=== PATIENT | male | born 1950 ===

== ENCOUNTER 2024-07-27 09:42 | Observation (INO) ==
--- NOTE | 2024-07-03 11:57 | PAT Medication Instructions ---
Medication Instructions Date of Service July 03, 2024 Home Medications amlodipine 10 mg tablet 10 mg PO PM lisinopril 30 mg tablet 30 mg PO QAM metformin 1,000 mg tablet 1,000 mg PO BID aflibercept 2 mg/0.05 mL intravitreal solution for injection (Eylea) 1 mg intravitreal UD multivitamin 1 tab PO DAILY naproxen sodium 220 mg tablet (Aleve) 220 mg PO BID PRN Pain ASK your surgeon for instructions naproxen sodium 220 mg tablet (Aleve) 220 mg PO BID PRN Pain ASK your prescriber and surgeon aflibercept 2 mg/0.05 mL intravitreal solution for injection (Eylea) 1 mg intravitreal UD DO NOT take the morning of surgery lisinopril 30 mg tablet 30 mg PO QAM metformin 1,000 mg tablet 1,000 mg PO BID multivitamin 1 tab PO DAILY Take evening before surgery amlodipine 10 mg tablet 10 mg PO PM metformin 1,000 mg tablet 1,000 mg PO BID NOTHING TO EAT OR DRINK AFTER MIDNIGHT Other Notes If you have any questions please call us at [phone] or [phone] or [phone] or [phone]
--- NOTE | 2024-07-09 10:21 | Anesthesiology Consultation ---
Date of Service July 09, 2024 Assessment & Plan (1) Encounter for pre-operative examination: - Optimization form to be sent to Dr. Donaldson regarding anemia. Surgeon's office made aware. - check BSG am DOS. - Outpatient joint assessment: Patient is currently scheduled for inpatient pathway. If re-evaluated and patient/surgeon requests outpatient pathway, patient is not ideal candidate for outpatient joint program from anesthesia standpoint. Chart Review Chart Review: Pending: Refer to Additional Notes / Consult section and Patient seen in Pre Admission Testing Teaching & Discussion Pre-Anesthesia Teaching/Discussion Notes: Instructed NPO after midnight before surgery, except medications with 15 cc of water. Medication instructions provided according to the PAT guidelines. History Surgery Operation Date: 07/27/24 08:50 Proposed Procedures p Left Total Knee Arthroplasty - Orion Gomes MD Height/Weight Height: 5 ft 10 in Weight: 97.3 kg Allergies Allergy/AdvReac Type Severity Reaction Status Date / Time No Known Allergies Allergy Verified 06/26/24 08:03 Medications Home Medications Medication Instructions Recorded Confirmed Last Taken amlodipine 10 mg tablet 10 mg PO PM 06/11/24 06/26/24 Unknown lisinopril 30 mg tablet 30 mg PO QAM 06/11/24 06/26/24 Unknown metformin 1,000 mg tablet 1,000 mg PO BID 06/11/24 06/26/24 Unknown aflibercept 2 mg/0.05 mL 1 mg intravitreal UD 06/26/24 06/26/24 Unknown intravitreal solution for injection (Eylea) multivitamin 1 tab PO DAILY 06/26/24 06/26/24 Unknown naproxen sodium 220 mg tablet 220 mg PO BID PRN Pain 06/26/24 06/26/24 Unknown (Aleve) Past Medical History Medical History Diabetes mellitus, type 2 NIDDM Hypertension controlled, stable per pt Neuropathy hands and feet Osteoarthritis Patient denies h/o stroke, seizures, heart attack, heart failure, blood clots/DVTs or blood transfusions. Exercise / Class Metabolic Activity II 4-5 Yardwork/Stairs/Walk up hill (denies chest discomfort or shortness of breath with one flight of stairs) Past Family History Family History Mother Slow to wake up after anesthesia Past Surgical History Surgical History History of cataract surgery bilat History of colonoscopy History of mandibular surgery History of right inguinal hernia repair History of tooth extraction Hx of external ear surgery right Hx of hemorrhoidectomy Past Anesthesia History No Hx of Anesthesia Complications and Other (mother slow to wake) History of PONV No Hx of PONV and No Hx of Motion Sickness Social History Smoking Status: Never smoker Do You Dip or Chew Tobacco: No Hx Alcohol Use: No Hx Substance Use: No substance use type: does not use Review of Systems Patient denies chest pain, shortness of breath, dyspnea on exertion, snoring, witnessed apneas, reflux, fever, chills, cough, wheezing, or palpitations. Physical Exam Vital Signs Vitals BP 135/72 P 64 TEMP 98.3 SP02 96% on RA RESP 18 Physical Patient resting comfortably in chair in no acute distress, alert and oriented, responding appropriately throughout visit Full cervical extension range of motion without pain TMD 3.5 finger breadths Mallampati Score 2 Dentition: intact, denies chipped or loose teeth, caps/crowns, implants or bridges Lungs: normal respiratory effort. Good air movement, clear throughout to auscultation, no adventitious breath sounds Cardiac: regular rate and rhythm, no murmurs noted Carotid arteries: negative bruit bilat Lab Results Anesthesia Preop Results Results Anesthesia Widget: WBC 5.93 K/ul (4.8-10.8) 07/09/24 Hgb 11.8 g/dl (14.0-18.0) L 07/09/24 Hct 37.5 % (42.0-52.0) L 07/09/24 Plt 243 K/uL (130-400) 07/09/24 PT 10.5 Seconds (9.0-12.0) 07/09/24 PTT 27 Seconds (21-31) 07/09/24 INR 1.0 (0.9-1.1) 07/09/24 Blood Type A Negative 07/09/24 Antibody Screen NEGATIVE 07/09/24 Testing Laboratory Results 06/01/24 SODIUM: 140 POTASSIUM: 4.7 CHLORIDE: 106 CO2: 27 BUN: 29 CREATININE: 1.2 GLUCOSE: 98 A1c: 6.5% Electrocardiogram Date: 07/09/24 Sinus bradycardia, rate 58 bpm Chest X-Ray Date: 07/02/24 No acute process of the chest.
--- NOTE | 2024-07-23 20:44 | History & Physical Report ---
Date of Service July 23, 2024 Assessment & Plan (1) Left knee DJD: 74-year-old gentleman with advanced left knee DJD. He has had about 10-year history of progressive increased pain discomfort. He is failed conservative measures. He like to have his left knee replaced. Plan: We will take him to the operating do left total knee replacement but the risk and benefit this procedure explained and he understands. Informed consent was obtained. He will need to hold his lisinopril and the metformin the morning of surgery. He has been seen by his medical doctor and cleared for surgery. History of Present Illness Chief Complaint: . Left knee pain discomfort and swelling. Primary Care Provider: NO PCP . The patient is a 74-year-old gentleman who presents specifically for surgical treatment of the left knee. Got a long history of knee problems dating back to a fall about 10 years ago. He has been treated over the years for knee arthritis which would become less successful. He describes global pain in his knees. The knee is gotten stiffer as time gone on. It does swell as well. He limps more as the day goes on. He now like to consider surgery. Allergies Allergy/AdvReac Type Severity Reaction Status Date / Time No Known Allergies Allergy Verified 06/26/24 08:03 Home Medications Medication Instructions Recorded Confirmed Type amlodipine 10 mg tablet 10 mg PO PM 06/11/24 06/26/24 History lisinopril 30 mg tablet 30 mg PO QAM 06/11/24 06/26/24 History metformin 1,000 mg tablet 1,000 mg PO BID 06/11/24 06/26/24 History aflibercept 2 mg/0.05 mL 1 mg intravitreal UD 06/26/24 06/26/24 History intravitreal solution for injection (Eylea) multivitamin 1 tab PO DAILY 06/26/24 06/26/24 History naproxen sodium 220 mg tablet 220 mg PO BID PRN Pain 06/26/24 06/26/24 History (Aleve) Past Med/Surg History Problem List Encounter for pre-operative examination Left knee DJD Medical History Osteoarthritis Diabetes mellitus, type 2 NIDDM Neuropathy hands and feet Hypertension controlled, stable per pt Surgical History History of mandibular surgery History of colonoscopy Hx of hemorrhoidectomy History of tooth extraction History of cataract surgery bilat Hx of external ear surgery right History of right inguinal hernia repair Family History Mother Slow to wake up after anesthesia Social History Smoking Status: Never smoker Second Hand Exposure: No; Do You Dip or Chew Tobacco: No; Hx Alcohol Use: No Hx Substance Use: No Preferred Language: Indian Communication Ability: Effective Human Resource Adviser Required: No Beliefs That Will Affect Care: None Current Living Situation: Alone Feels Safe at Home: Yes Assistive Devices: Glasses Review of Systems All systems reviewed & are unremarkable except as noted in HPI & below. Physical Exam . Physical examination reveals a pleasant middle-age male. Looks in pretty good health. Examination of the left knee reveal patient ambulates independently. He is got a slight bit of a limp he is got varus alignment to his knee with a bit of a varus thrust with weightbearing. He is got a moderate to large knee joint effusion. Pretty stiff knee with about a 10 to 15 degree flexion contracture and only bends to about 90 degrees. No pain with hip motion. Constitutional WD/WN, vitals as above Neck trachea midline, no thyromegaly Respiratory normal respiratory effort, lungs clear to auscultation Cardiovascular RRR, no murmur, no edema Gastrointestinal (Abdomen) normal bowel sounds, soft, nontender, no hepatosplenomegaly Results & Data Results & Data Laboratory Results . Diagnostic Findings . X-rays of the left knee reviewed. Shows advanced left knee DJD. Is got complete loss of the medial joint space. He is got nexq-xz-domn disease. Got osteophytes primarily medially. I did get an x-ray of his hip which reveals minimal arthritic change. PG Care Time/CCT Total # of Minutes Spent Total Time Spent with Patient: Total time spent is greater than 50% in coordination of care (as documented) at patient's floor/unit and/or counseling patient: Coding Level of Care Code None Diagnoses Left knee DJD M17.12
[~2024-07-27 09:42] MED LIST: BUPIVACAINE 0.5 % 5 MG/1 ML PF 10ML VIAL ONE; ROPIVACAINE 0.5% 5 MG/ML 30 ML VIAL ONE
[2024-07-27] MEDS: ACETAMINOPHEN 500 MG TAB PO SCH ×2 (10:17→21:06)
[2024-07-27] MEDS: LR 60ML/HR IV SCH (10:17)
[2024-07-27] MEDS: LR 15ML/HR IV SCH (10:17)
[2024-07-27] MEDS: METOCLOPRAMIDE HCL 10 MG TABLET PO SCH (10:18)
[2024-07-27] MEDS: CeleBREX 200 MG CAP PO SCH (10:18)
[2024-07-27] MEDS: FAMOTIDINE 20 MG TAB PO SCH (10:18)
--- NOTE | 2024-07-27 11:00 | History & Physical Bridge Note ---
Date of Service July 27, 2024 History & Physical Bridge Note I have examined the patient, reviewed the History & Physical and in the interval since the performance of the History & Physical I have noted the following changes of clinical significance: no changes noted
[2024-07-27] MEDS ORDERED: fentaNYL citrate PF 100 MCG/2 ML VIAL ONE ×2 (12:31→13:49)
[2024-07-27] MEDS ORDERED: PROPOFOL IV EMULSION 10 MG/ML 20 ML VIAL IV ONE (12:31)
[2024-07-27] MEDS ORDERED: MIDAZOLAM HCL 1 MG/ML 2ML VIAL ONE (12:31)
[2024-07-27] MEDS ORDERED: ATROPINE SULFATE 0.1 MG/ML 10ML SYR IV PRN (12:33)
[2024-07-27] MEDS ORDERED: fentaNYL citrate PF 100 MCG/2 ML VIAL IV PRN (12:33)
[2024-07-27] MEDS ORDERED: ONDANSETRON INJ 2 MG/ML 2 ML VIAL IV PRN ×2 (12:33→16:35)
[2024-07-27] MEDS ORDERED: ePHEDrine sulfate 50 MG/ML AMP IV PRN (12:33)
[2024-07-27] MEDS: TRANEXAMIC ACID 1,000 MG **IV Pre-op IV SCH (12:50)
[2024-07-27] MEDS ORDERED: ePHEDrine sulfate 50 MG/5 ML SYR ONE (13:42)
[2024-07-27] MEDS: ceFAZolin 2000MG 2,000 MG/15 ML SYR IV SCH ×2 (13:42→21:07)
[2024-07-27] MEDS: ROPIVACAINE 0.5% HCL/PF 246 MG, Ketorolac (*for OR use only*) 30 MG, EPINEPHrine 30MG/3... INFIL SCH (13:58)
[2024-07-27] MEDS: VANCOMYCIN HCL 1000MG/20ML VIAL ONE (13:59)
[2024-07-27] MEDS: ORTHO JOINT ANESTHETIC ONE (13:59)
[2024-07-27] MEDS: TRANEXAMIC ACID 100 MG/ML 10 ML VIAL IV ONE (14:15)
[2024-07-27] MEDS ORDERED: TRANEXAMIC ACID / 0.7% NACL 1000MG/100ML BAG IV ONE (14:38)
--- NOTE | 2024-07-27 15:10 | Operative Report ---
PG Post Operative Report Pre & Post Diagnosis Operation Date: 07/27/24 12:30 Pre-Op Diagnosis: Left Knee Degenerative Joint Disease Post-Op Diagnosis: Left Knee Degenerative Joint Disease I identified the patient and participated in the time-out.: Yes Procedure Operation Date: 07/27/24 12:30 Actual Procedures p Left Total Knee Arthroplasty(Left) - Orion Gomes MD Surgeon Orion Gomes MD Cookie Mixer Helper Horacio Arteaga PA-C Estimated Blood Loss 50 Findings Consistent with Post-Op Diagnosis Operative findings were advanced left knee DJD. Day 8 extensive grade 4 [id number]-[id number] disease most severe in the medial compartment but also elsewhere. He had a very stiff knee with about a 15 degree flexion contracture and flexion to about 100 degrees preoperatively. He had a fixed varus deformity to his knee. Specimens Left knee sent for pathology. Anesthesia Type General Complications none Indications The patient is 74-year-old gentleman who has had a long history of gradual progressive left knee pain discomfort is gotten worse over time. Spring through extensive conservative treatments became less successful over time. Patient elected proceed with left total knee arthroplasty. Description of Procedure Operative implants consist of: 1 Biomet Vanguard size 72.5 left posterior stabilized femoral component. 2. Biomet size 79 tibial tray. 3. 10 mm posterior Byce polyethylene insert. 4. 34 x 8 and half all poly patella. The patient was taken the operating, identified, placed on the operating table in the supine position. All contact areas were appropriately padded. IV antibiotics fibra anesthesia team. A general anesthetic was implemented. A left thigh turn was then placed. The left lower extremity was then prepped and draped in usual sterile fashion. The left leg was elevated and exsanguinated with use of an Esmarch and a turn was placed at 300 mmHg. An anterior approach left knee was then performed to longitudinal incision centered over the patella. Sharp dissection was got thr ough subcutaneous tissue down the extensor mechanism. A medial parapatellar arthrotomy incision was made. Some subperiosteal dissection was carried out medially. We did a pretty extensive soft tissue release medially due to his varus and flexion contractures. The fat pad was dissected from Neath patella tendon. The lateral patellofemoral ligament was released. Patella subluxated laterally knee was flexed. The osteophytes taken on distal femur. The ACL and PCL were then released from distal femur and the tibia subluxated anteriorly. The external tibial alignment jig was then placed on the anterior face the tibia and adjusted 14 mm medially. Proximal tibial cut was made remove about a millimeter bone from most deficient aspect medial tibial plateau. Tibia sized to a size 79. Attention drawn the femur. The distal femur then with a sharp drill. Intramedullary canal was suction. The left 6 degree valgus cutting guide was placed. This femoral cutting block was pinned in place. This femoral cut was made take an additional 5 mm of bone off distal femur due to his flexion contracture. The femur was then sized to a size 72.5. The AP cutting block was pinned parallel to the epicondylar axis which was 4 degrees of external rotation. The anterior cut, anterior chamfer, posterior cut, posterior chamfer cuts were made. The box cutting guide was placed in the just slight lateral and the box cut was made. The knee was flexed. The remnants of the medial and lateral menisci were excised. The osteophytes taken off the posterior aspect the femur. Trial femoral component was placed. The tibial tray was pinned Victoria external rotation and the drill and stem punch used to create defect in proximal tibia for the tibial tray. Knee was then trialed and the 10 mm insert fit most appropriately. Attention drawn the patella. The patella spanned all soft tissue. Patella thickness measured 24 mm in thickness and was cut down to 15. Was sized to a size 34 patella. The lug holes were drilled for 34 patella. Lateral osteophytes removed. Patella button was placed. Knee was taken through range of motion and the patella tracked nicely with no thumbs test. Attention drawn to place the permanent components. All trial components were removed. Bone plug was placed into this femur limit blood loss. A double batch Palacos G cement was mixed. I did add an additional gram of vancomycin to the cement due to his history of multiple medical problems, diabetes, and compromised vascular status. A Biomet Vanguard size 72.5 left posterior stabilized femoral component, size 79 tibial tray, 10 mm posterior Byce polyethylene insert, 34 x 8 and half all poly patella then cemented in place. The knee was brought out in full extension till cement hardened. Final cement check was then performed. The pericapsular tissues were injected with total of 100 cc of Ortho mix. Patient did receive 1 g tranexamic acid. The tourniquet was then let down for final treatment time 55 minutes. Hemostasis assured use electrocautery. Extensor Meclomen closed with combination 1 PDS suture and then 1 Vicryl suture in a [id number] fashion. Extensor Meclomen checked to be intact the subcutaneous tissue then closed with 2 Dexon suture in a buried interrupted fashion skin was closed skin rashaad. Leg was then cleaned and dried a sterile dressing with Xeroform, 4 fours, sterile cast padding, Miller bandage were applied. Patient then transferred to the recovery in stable condition. Patient tolerated procedure well and there were no complications. Horacio Arteaga, my physician residential living assistant, was present for the entire procedure. His assistance was essential and required for appropriate patient positioning, prepping and draping, surgical exposure, performing the technical details of the operation, placement the implants, closure of the wound, and placement of the sterile bandage. I attest to the content of the Intraoperative Record and any orders documented therein. Any exceptions are noted below.
--- NOTE | 2024-07-27 15:32 | Anesthesiology Progress Note ---
Date of Service July 27, 2024 Anesthesia Post Procedure Vital Signs Vital Signs: Temp Pulse Pulse Resp BP BP Pulse Ox 07/27/24 15:25 85 16 153/67 H 96 07/27/24 15:15 84 24 125/72 95 07/27/24 15:05 36.3 C L 85 22 130/61 97 07/27/24 10:02 36.7 C 70 18 172/90 H 97 O2 Del Method O2 Flow Rate 07/27/24 15:25 Room Air 07/27/24 15:15 Room Air 07/27/24 15:05 Oxymask 6 07/27/24 10:02 Room Air Pain Intensity Left Knee: Pain Intensity: 2 Transfer of Care Handoff Completed per policy Notes Mental Status: alert / awake / arousable and participated in evaluation Patient Amnestic to Procedure: Yes Nausea / Vomiting: adequately controlled Pain: adequately controlled Airway Patency, RR, SpO2: stable & adequate BP & HR: stable & adequate Hydration State: stable & adequate Anesthetic Complications: no major complications apparent
--- NOTE | 2024-07-27 15:42 | XRay Report ---
XR knee LT 1 or 2V routine CLINICAL HISTORY: Surgical Post Op TECHNIQUE: 2 views of the left knee were obtained. Comparison: None available at the time of this dictation. FINDINGS: Patient is status post total knee arthroplasty with expected postsurgical changes including soft tiss ue swelling and subcutaneous emphysema. No periarticular lucency or hardware fracture is seen. IMPRESSION: Expected postoperative appearance status post placement of total knee arthroplasty. ACT 112: Negative or not required by law. Electronically signed by: Ramon Jacobs M.D. 07/27/2024 3:40 PM
[2024-07-27] MEDS ORDERED: ALUMINUM/MAGNESIUM SUSP 30 ML UDC PO PRN (16:35)
[2024-07-27] MEDS ORDERED: METOCLOPRAMIDE HCL INJ 5 MG/ML 2 ML VIAL IV PRN (16:35)
[2024-07-27] MEDS ORDERED: MAGNESIUM HYDROXIDE SUSP 30 ML UDC PO PRN (16:35)
[2024-07-27] MEDS ORDERED: GLUCOSE 10 TAB/TUBE PO PRN (16:35)
[2024-07-27] MEDS ORDERED: DEXTROSE 50% 50 ML SYRINGE IV PRN (16:35)
[2024-07-27] MEDS ORDERED: bisacodyL 10 MG SUPP PR PRN (16:35)
[2024-07-27] MEDS ORDERED: NALOXONE HCL 0.4 MG/1 ML VIAL/CARP IV PRN (16:35)
[2024-07-27] MEDS ORDERED: NON-FORMULARY MEDICATION (Aflibercept [Eylea] 2 mg/0.05 mL Solution) INT VIT SCH (16:35)
[2024-07-27] MEDS ORDERED: CARBOHYDRATES FOR HYPOGLYCEMIA PO PRN (16:35)
[2024-07-27] MEDS ORDERED: PHARMACY GLYCEMIC MGMT CONSULT PRN (16:35)
[2024-07-27] MEDS ORDERED: HYDROmorphone INJ 0.5 MG/0.5 ML SYR IV PRN (16:35)
[2024-07-27] MEDS ORDERED: oxyCODONE HCL IR 5 MG TAB (IMMEDIATE RELEASE) PO PRN (16:35)
[2024-07-27] MEDS ORDERED: GLUCOSE 40% GEL 15 GM TUBE PO PRN (16:35)
[2024-07-27] MEDS ORDERED: GLUCAGON FOR INJ 1 MG VIAL SQ PRN (16:35)
[2024-07-27] MEDS: SODIUM CHLORIDE 0.9% 1,000 ML IV SCH (16:56)
[2024-07-27] MEDS ORDERED: Nursing to Pharmacy Communication STA (17:58)
[2024-07-27] MEDS: INSULIN ASPART PER UNIT CHARGE SC SCH (18:10)
[2024-07-27] MEDS: ASCORBIC ACID 500 MG TAB PO SCH (18:12)
[2024-07-27] MEDS: KETOROLAC TROMETHAMINE 15 MG/ML VIAL IV SCH (18:15)
[2024-07-27] MEDS ORDERED: INSULIN ASPART PER UNIT CHARGE SC SCH (21:00)
[2024-07-27] MEDS: DOCUSATE SODIUM 100 MG CAP PO SCH (21:06)
[2024-07-27] MEDS: TRANEXAMIC ACID / 0.7% NACL 1,000 MG/100 ML BAG IV SCH (21:07)
[2024-07-27] MEDS: SENNA 8.6 MG TAB PO SCH ×2 (21:07)
[2024-07-27] MEDS: ASPIRIN 81 MG ECTAB PO SCH (21:08)
[2024-07-27] MEDS: amLODIPine BESYLATE 5 MG TAB PO SCH (21:08)
[2024-07-28] MEDS ORDERED: Nursing to Pharmacy Communication SCH (03:00)
[2024-07-28] MEDS: INSULIN ASPART PER UNIT CHARGE SC SCH (03:26)
[2024-07-28 07:01] LABS: Hematocrit (blood only) 29.1 % (42.0-52.0); Hemoglobin 9.2 g/dl (14.0-18.0); Mean Corpuscular Hemoglobin 28.8 pg (25.0-34.0); Mean Corpuscular Hgb Conc 31.6 g/dL (32.0-36.0); Mean Corpuscular Volume 90.9 fL (80.0-100.0); Mean Platelet Volume 10.8 fL (9.4-12.4); Platelet Count 197 K/uL (130-400); RDW Coefficient of Variation 12.8 % (11.5-14.5); RDW Standard Deviation 42.8 fL (36.4-46.3); White Blood Count 6.38 K/ul (4.8-10.8)
[2024-07-28 07:16] LABS: Calcium 8.4 mg/dl (8.6-10.3); Creatinine Clr Calc Pharmacy 49.1 ml/min; Est GFR (African American) 50.3 ml/min; Est GFR (Non-African American) 43.4 ml/min; Potassium 4.4 mmol/L (3.5-5.1)
[2024-07-28 07:34] LABS: Estimated Average Glucose 134 mg/dl; Hemoglobin A1C 6.3 % (4.5-5.6)
[2024-07-28] MEDS: lisinopril 10 MG TAB PO SCH (08:37)
[2024-07-28] MEDS: TAMSULOSIN HCL 0.4 MG CAP PO SCH (08:38)
[2024-07-28] MEDS: dexAMETHasone 10 MG in SYRINGE 0 ML IV SCH (08:38)
[2024-07-28] MEDS: MULTIVITAMIN TAB PO SCH (08:38)
[2024-07-28] MEDS ORDERED: NON-FORMULARY MEDICATION (Multivitamin Tablet) PO SCH (09:00)
--- NOTE | 2024-07-30 08:18 | Discharge Summary ---
Date of Service July 30, 2024 Discharge Data Procedures Performed Operation Date: 07/27/24 12:30 Actual Procedures p Left Total Knee Arthroplasty(Left) - Orion Gomes MD Hospital Course (1) Status post total left knee replacement: This is a 74 year old patient admitted on 07/27/24 and underwent total knee arthroplasty. He tolerated the procedure well and there were no complications. Transferred to the PACU post op and later to the orthopedic floor for further care. He was given ancef for antibiotic prophylaxis. He was also given ANANDA stockings, SCDs, and aspirin for DVT prophylaxis. Hemoglobin, hematocrit, and vital signs were monitored during his hospital stay and remained stable. Did not require any blood transfusions. There were no complications during his hospital stay. By post op day #1 the patient was tolerating a diabetic diet, pain was reasonably controlled with oral pain medicine, and he was participating in physical therapy. On post op day #1 the patient was discharged home and set up with home health care. He was given printed discharge instructions including prescriptions for extra strength tylenol, aspirin, cefadroxil, ketorolac, zofran, senokot, oxycodone, and flomax. Continue physical therapy, weight bearing as tolerated. Continue ANANDA stockings. Follow up approximately 2 weeks post op or sooner if there are problems or concerns. Coding Level of Care Code None Diagnoses Status post total left knee replacement Z96.652
== END 2024-07-28 12:30 | disposition home health service (06) ==
LOC: PACUINP 09:42 → ASU 09:42 → 3N 16:38